=== PATIENT | female | born 1995 | race Caucasian/White ===

== ENCOUNTER 2020-11-03 11:35 | Inpatient (IN) | payer MEDICAID, SELFPAY ==
[2020-11-03] VITALS (23 sets, daily range): BP systolic 95–133; BP diastolic 56–83; PULSE 68–99; RESP 16–18; TEMP 36.5; BMI 25.6
[2020-11-03] MEDS: oxytocin 30 UNIT/500 ML BAG 600 UNIT IV (11:21)
[2020-11-03] MEDS: lactated ringers 1,000 ML 999 ML IV (11:30)
--- NOTE | 2020-11-03 11:58 | P.PCNOB_ITS ---
Delivery Note: Date of delivery: November 03, 2020 this 24-year-old 3 now para 3 female at 39-1/2 weeks gestation had spontaneous onset of labor around 9:00 this morning. They arrived to [facility] OB department at a little before 11 and was found to be completely dilated. This physician was called and we arrived and got things prepared and she was able to push and delivered by spontaneous vaginal delivery a healthy, viable female infant at 1118. Upon delivery of the head in occiput posterior position the mouth and nose were suctioned at the perineum. She did have artificial from her membranes immediately prior to delivery of the infant and the fluid was clear. The right shoulder delivered anteriorly followed by the left shoulder posteriorly. The was then suctioned more and laid on mother's abdomen. She was initially stunned but cried lustily within a minute and had Apgars of 8 and 9 at 1 and 5 minutes respectively. The umbilical cord was cut by the 's father after clamping at approximately 1 minute of age. The umbilical cord had 3 blood vessels. There was no nuchal cord. The patient had a small midline second- degree episiotomy which extended but continue to be a second-degree. This was repaired using layered surgical closure and local anesthesia using lidocaine 2% without epinephrine. After closing the perineum and vaginal area, the vaginal vault was explored and a moderate amount of clots were cleared with the fundus remaining very firm. Bleeding slowed immensely. She did have Pitocin going intravenously. The weighed 8 pounds 6 ounces with an estimated blood loss of approximately 213 mL. There were no complications. Pre-Delivery Course: This patient is followed by this physician throughout her course without any major concerns or problems. Her blood type was A+ with antibody screen negative. Hepatitis B, hepatitis C, RPR and HIV were negative. Rubella was immune and group B strep was negative. Delivery: Spontaneous vaginal delivery. Post-Delivery Status: Patient will be followed for routine postdelivery care. A&P Assessment and plan (1) Normal spontaneous vaginal delivery: Patient did well with the delivery and will be followed for routine postdelivery care. Status: Acute Coding Level of Care Code Acute Sterile Supply Technician for Chg Fwd Diagnoses Normal spontaneous vaginal delivery O80
[2020-11-03] MEDS: HYDROcodone-acetaminophen 5-325 mg Tablet PO (12:28)
[2020-11-03] MEDS: benzocaine-menthol 78 gm Canister 1 SPRAY TOPICAL (12:28)
[2020-11-03] MEDS: ibuprofen 800 mg tablet PO ×2 (15:21→20:14)
--- NOTE | 2020-11-03 19:07 | PC.NURSE ---
Mom was late to care. First appt 30 weeks 4 days. Mom states this is because of COVID
[2020-11-04] VITALS (7 sets, daily range): BP systolic 100–117; BP diastolic 55–74; PULSE 72–152; RESP 14–15; TEMP 36.8–37.2
[2020-11-04 03:30] LABS: Hematocrit 22.2 % (37.0-47.0); Mean Corpuscular HGB Conc 29.3 g/dL (30.0-36.0); Mean Corpuscular Hemoglobin 20.8 pg (28.0-34.0); Mean Corpuscular Volume 71.2 fL (81-99); Mean Platelet Volume 11.7 fL (7.4-10.4); Platelet Count 194 10^3/cmm (130-400); Red Blood Count 3.12 10^6/uL (4.1-5.3); Red Cell Distribution Width 18.7 % (12.1-15.1); White Blood Count 14.8 10^3/uL (4.0-10.0)
[2020-11-04 03:39] LABS: Hemoglobin 6.5 g/dL (11.5-15.3)
--- NOTE | 2020-11-04 07:33 | PM.OBGYDC ---
Discharge Providers ENGINEER BYPRODUCT Date of Admission: 11/03/20 11:35 Date of Discharge: 11/04/20 Attending Provider at Admission: Tyson Romero MD Attending Provider at Discharge: Tyson Romero MD Primary Care Provider: Tyson Romero MD Diagnoses at Discharge Discharge Diagnosis (1) Normal spontaneous vaginal delivery: Status: Acute (2) Anemia affecting third : Status: Acute Reason for Visit Reason for Visit: Contractions Hospital Course Hospital Course This patient began having contractions around 9 AM yesterday. [facility] a little before 11:00 AM. Upon arrival, she was found to be completely dilated and julissa. This physician was called and we are able to deliver by spontaneous vaginal delivery healthy, viable female with Apgars of 8 and 9 at 1 and 5 minutes respectively. There was a midline second-degree episiotomy with a layered surgical closure. As she came quickly and delivered quickly were unable to get any blood work done prior to delivery. Therefore, the hemogram was just done this morning. This morning the hemoglobin was 6.5 with a hematocrit of 22. I suspect this is more of a longstanding anemia with acute worsening. She is completely asymptomatic at this time. She has had just mild lochia and no heavy bleeding or clots noted. There are no other problems or concerns and she will be ready for discharge this afternoon after 's metabolic screen. Information Peripartum Data: Infant Delivery Method: Vaginal Physical Exam Const: COMMON NORMALS: no acute distress, average body habitus, healthy appearing, alert and well nourished GENERAL APPEARANCE: cooperative, comfortable, well kempt and well hydrated ORIENTATION/CONSCIOUSNESS: Yes awake, Yes oriented to person, Yes oriented to place and Yes oriented to time HENMT: COMMON NORMALS: moist oral mucous membranes Resp: COMMON NORMALS: normal respiratory effort, No retractions, No use of accessory muscles and clear to auscultation bilaterally AUSCULTATION: clear to auscultation bilaterally Cardio: COMMON NORMALS: regular rate, regular rhythm and No murmurs present (Cardio) RATE: regular rate RHYTHM: regular rhythm GI: COMMON NORMALS: Normal to inspection, nondistended, normoactive bowel sounds present, Soft to palpation and non-tender (Fundus is firm well below the umbilicus.) INSPECTION: Yes normal to inspection PALPATION: Yes Soft to palpation : COMMON NORMALS: Yes no CVA tenderness BLADDER/KIDNEY EXAM: Yes no CVA tenderness Back/Pelvis: COMMON NORMALS: no CVA tenderness Extremity: COMMON NORMALS: normal to inspection, full ROM, capillary refill normal, no calf tenderness and no pedal edema Neuro: COMMON NORMALS: moves all extremities, no focal motor deficits and no sensory deficits noted SENSORIUM/ORIENTATION: Yes alert, Yes oriented to person, Yes oriented to place and Yes oriented to time Psych: COMMON NORMALS: mental status grossly normal, cooperative and normal affect APPEARANCE: Yes well kempt Skin: COMMON NORMALS: no rashes or lesions noted GENERAL SKIN EXAM: no rashes or lesions noted Discharge Data Data Completed and Pending: Labs from last 24 hours 11/04/20 02:40 WBC 14.8 H RBC 3.12 L Hgb 6.5 L* Hct 22.2 L MCV 71.2 L MCH 20.8 L MCHC 29.3 L RDW 18.7 H Plt Count 194 MPV 11.7 H Vitals: Last Vital Signs Temp 98.3 F 11/04/20 05:42 Pulse 86 11/04/20 05:48 Resp 46 H 11/04/20 05:42 BP 103/55 11/04/20 05:48 Discharge Plan Discharge Patient Disposition: Home Condition: Stable Prescriptions: New ibuprofen 800 mg Tablet 800 mg PO TID Qty: 90 RF: 2 ferrous sulfate 325 mg (65 mg iron) tablet,delayed release (DR/EC) 325 mg PO BID Qty: 60 RF: 5 docusate sodium [DOK] 100 mg Capsule 100 mg PO BID Qty: 60 RF: 5 Discharge Orders: Discharge Order (Routine); Ordered 11/04/20 Ordered By: Tyson Romero Referrals: Tyson Romero MD [Primary Care Provider] - 6 Weeks Discharge Diet: Usual diet Discharge Activity: Resume usual activity Patient Instructions: Opioid Safety Discharge Attestations ENGINEER BYPRODUCT Time Spent in Discharge Care*: less than 30 min Specific Discharge Activities: Specific discharge activities: educating patient, documenting/other paperwork and evaluating patient/reviewing data Coding Level of Care Code Acute Food Preparation Kitchen Aide for Chg Fwd Diagnoses Normal spontaneous vaginal delivery O80 Anemia affecting third O99.019
[2020-11-04] MEDS: prenatal vitamin Capsule 1 CAP PO (08:04)
[2020-11-04] MEDS: ibuprofen 800 mg tablet PO (08:04)
[2020-11-04] MEDS: docusate sodium 100 mg Capsule PO (08:05)
== END 2020-11-04 14:30 | disposition home or self-care (01) | DRG 807 ==
LOC: OPOB 11:35 → OBGYN 11:35
PROVIDERS: Admitting Provider Family Medicine; PCP Family Medicine; Visit Provider Family Medicine
DX: O99.02 Anemia complicating childbirth (principal); Z37.0 Single live birth; D64.9 Anemia, unspecified; O70.1 Second degree perineal laceration during delivery; Z3A.39 39 weeks gestation of pregnancy
CPT/HCPCS: 36415; 59025; 59409; 85027; 99211

== ENCOUNTER 2024-04-04 14:23 | Emergency (ER) | payer SELFPAY ==
[2024-04-04 14:24] VITALS: BP 135/95; PULSE 97; RESP 18; TEMP 36.8; O2SAT 100; BMI 23.3
--- NOTE | 2024-04-04 14:26 | ECG_ITS ---
[facility] Test Date: 2024-04-04 Pat Name: Shazia Contreras Department: Room: Gender: Female Media Marketing Specialist: : 1995 Requested By: Shazia Winston Order Number: [id number] Faye MD: DEONTE BARNETT Measurements Intervals [place] Rate: 94 P: 86 [place]: 155 QRS: 79 QRSD: 95 T: 60 QT: 343 QTc: 431 Interpretive Statements SINUS RHYTHM INCOMPLETE RIGHT BUNDLE BRANCH BLOCK [90+ ms QRS DURATION, TERMINAL R IN V1/V2, 40+ ms S IN I/aVL/V4/V5/V6] No previous ECG available for comparison Electronically Signed On 04-05-2024 20:13:07 CDT by DEONTE BARNETT [email or web address] medical [email or web address] Mammoth Gamesselect medical specialty hospital - [facility], inc.Chatty/store/NU/[id number] f
--- NOTE | 2024-04-04 14:31 | CTR_ITS ---
PROCEDURE INFORMATION: Exam: CT Head Without Contrast Exam date and time: 04/04/2024 3:05 PM Age: 28 years old Clinical indication: Altered mental status/memory loss; Additional info: Encephalopathy, altered mental status TECHNIQUE: Imaging protocol: Computed tomography of the head without contrast. Axial, coronal and sagittal reformatted images were created and reviewed. Radiation optimization: All CT scans at this facility use at least one of these dose optimization techniques: automated exposure control; mA and/or kV adjustment per patient size (includes targeted exams where dose is matched to clinical indication); or iterative reconstruction. COMPARISON: No relevant prior studies available. RADIATION DOSE METRICS: Total DLP (mGy-cm): 980 FINDINGS: Brain: No CT evidence of acute intracranial hemorrhage or acute territorial infarction. No significant mass effect or midline shift. Basal cisterns patent. Cerebral ventricles: Normal in size and configuration. Paranasal sinuses: Unremarkable. No fluid levels. Mastoid air cells: Grossly unremarkable. Bones: Unremarkable. No acute fracture. Soft tissues: Grossly unremarkable. CT/CT head wo con* [id number] IMPRESSION: No CT evidence of acute intracranial pathology.
[2024-04-04 14:41] LABS: Basophils # 0.1 10^3/uL (0.0-0.1); Eosinophils # 0.1 10^3/uL (0.0-0.8); Eosinophils % 1.4 %; Hematocrit 28.8 % (36-47); Lymphocytes # 1.1 10^3/uL (0.8-4.8); Lymphocytes % 21.7 %; Mean Corpuscular HGB Conc 27.1 g/dL (30-55); Mean Corpuscular Hemoglobin 16.6 pg (27-33); Mean Corpuscular Volume 61.1 fl (85-98); Mean Platelet Volume 10.6 fL (7.4-10.4); Monocytes # 0.5 10^3/uL (0.2-0.9); Monocytes % 9.8 %; Neutrophils # 3.38 10^3/uL (1.8-7.7); Neutrophils % 65.9 %; Nucleated Red Blood Cells % 0 %; Platelet Count 322 10^3/cmm (157-399); Red Blood Count 4.71 10^6/uL (3.85-5.65); Red Cell Distribution Width 19.7 % (12.1-15.1); White Blood Count 5.12 10^3/uL (3.29-11.43)
[2024-04-04 14:44] LABS: Slide Review Slide Review Perform
[2024-04-04 14:53] LABS: HCG, Serum Qual Negative (Negative)
[2024-04-04 14:59] LABS: Alanine Aminotransferase 12 U/L (0-33); Albumin Level 4.5 g/dL (3.5-5.2); Alkaline Phosphatase 48 U/L (35-105); Blood Urea Nitrogen 10 mg/dL (6-20); Calcium 8.6 mg/dL (8.5-10.5); Carbon Dioxide 23 mmol/L (22-29); Chloride 104 mmol/L (98-107); Globulin 3.2 g/dL (1.3-4.6); Glomerular Filtration Rate 84.8 mL/min (90-130); Glucose 86 mg/dL (65-115); Osmolality Calculated 282 mOsm/kg (285-295); Sodium 137 mmol/L (136-145); Total Bilirubin 0.4 mg/dL (0.15-1.2); Total Protein 7.7 g/dL (6.6-8.7)
[2024-04-04 15:00] LABS: Anion Gap 14.9 (5-19); Aspartate Amino Transferase 27 U/L (0-32); Lactic Sepsis W/Reflex 1.2 mmol/L (0.5-2.2); Potassium 4.9 mmol/L (3.5-5.1)
[2024-04-04 15:01] VITALS: BP 111/87; PULSE 84; O2SAT 99
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
[2024-04-04 15:41] LABS: ABG PCO2 33.7 mmHg (35-45); ABG PH Result 7.43 (7.35-7.45); Arterial Blood Gas Hematocrit 22.6 % (37-47); Base Excess ABG -1.9 mmol/L (-2.0-2.0); Blood Gas Operator Identificat glc; Blood Gas Sample Site Brachial, right; Blood Gas Sample Type Arterial; Carboxyhemoglobin 1.6 %THgb (0.4-20.1); HCO3 ABG 22.2 mmol/L (22-26); HGB O2 Sat 97.6 % (95-100); Ionized Calcium Level - ABG 1.2 mmol/L (1.1-1.4); Methemoglobin 0.4 % (0.4-1.5); Oxygen Saturation ABG > 99.1; PO2 FiO2 Ratio Arterial Blood 528; Potassium Level - ABG 3.6 mmol/L (3.5-5.0); Total Hemoglobin 7.4 g/dL (12-16)
[2024-04-04 15:45] LABS: Oxygen Device RA
[2024-04-04 15:57] LABS: Bilirubin Urine Negative (Negative); Blood Urine Negative (Negative); Glucose Urine UA Negative (Normal); Ketones Urine Negative (Negative); Leukocyte Esterase Urine Negative (Negative); Nitrate Urine Negative (Negative); Protein Urine Negative (Negative); Specific Gravity, Urine 1.005 (1.005-1.030); Urine Appearance Clear (CLEAR); Urine Color Yellow (Yellow); Urobilinogen Urine 0.2 mg/dL (Negative); pH Urine 6.5 (5-7)
[2024-04-04 16:00] LABS: Bacteria Urine None Seen /hpf; Hyaline Casts Urine 0-4 /lpf; RBC Urine 0-2 /hpf (0-2); Squamous Epithelial Cell Urine 0-5 /hpf (0-5); WBC Urine 0-5 /hpf (0-5)
[2024-04-04 16:01] LABS: Amphetamines Screen Urine Negative (Negative); Barbiturates Screen Urine Negative (Negative); Benzodiazepines Screen Urine Negative (Negative); Cocaine Screen Urine Negative (Negative); Opiate Screen Urine Negative (Negative); PCP Screen Urine Negative (Negative); THC Screen Urine Negative (Negative)
[2024-04-04 16:11] VITALS: BP 105/67; PULSE 82; O2SAT 100
[2024-04-04 16:34] VITALS: BP 107/64; PULSE 88; O2SAT 96
== END 2024-04-04 16:36 | disposition home or self-care (01) ==
PROVIDERS: Emergency Provider Emergency Medicine; PCP Family Medicine
DX: G40.89 Other seizures (principal); D64.9 Anemia, unspecified; F95.2 Tourette's disorder
CPT/HCPCS: 36600; 70450; 80051; 80053; 80306; 81001; 82330; 82805; 83605; 84703; 85025; 93005; 99284

== ENCOUNTER → 2024-04-10 16:50 | Outpatient (BNVA) | payer SELFPAY | PROVIDERS: PCP Family Medicine; Visit Provider Psychiatry & Neurology Neurology | DX: D64.9 Anemia, unspecified (principal); F95.2 Tourette's disorder | CPT/HCPCS: 36415; 82306; 82607; 82746; 83090; 83735; 83921; 84439; 84443; 84481 ==

== ENCOUNTER 2024-05-08 14:04 | Outpatient (CLI) | payer MEDICAID, SELFPAY ==
--- NOTE | 2024-05-08 13:45 | MR_ITS ---
WS: [id number] MRI HEAD WITH CONTRAST TECHNIQUE: Sagittal T1, T2 axial, T2 axial FLAIR, axial susceptibility weighted imaging, axial diffus ion weighted images, and coronal T2 images were obtained. Pre and post-T1 axial and post T1 coronal i mages. ADC and FSPGR images. CLINICAL INFORMATION: F95.2 - Tourette's disorder COMPARISON: None. FINDINGS: No evidence of restricted diffusion to suggest acute ischemia. Ventricular system and basal cisterns are patent. No suspicious intracranial signal abnormalities. Normal maier-white differentiation. Sintia l posterior fossa. Normal vascular flow voids at the skull base. No extra-axial fluid collections. No evidence of mass or mass effect. Paranasal sinuses and mastoid air cells are well aerated. No hemosiderin on the susceptibly weighted images. Normal optic chiasm and pituitary infundibulum. Te mporal lobes and hippocampal formations are normal in appearance. No abnormal gadolinium enhancement. Normal visualized dural venous sinuses. MR/MR head wo/w con [id number] IMPRESSION: 1. No evidence of restricted diffusion to suggest acute ischemia. 2. No suspicious intracranial signal abnormalities. 3. No abnormal gadolinium enhancement. 4. No hemosiderin on the susceptibly weighted images. 5. Temporal lobes and hippocampal formations are normal in appearance. 6. No other acute findings.
[2024-05-08] MEDS: gadobenate dimeglumine 20 mL vial 13 ML IV (15:00)
== END 2024-05-08 14:05 | disposition home or self-care (01) ==
LOC: RAD 14:06
PROVIDERS: PCP Family Medicine; Visit Provider Psychiatry & Neurology Neurology
DX: F95.2 Tourette's disorder (principal); D64.9 Anemia, unspecified
CPT/HCPCS: 70553

== ENCOUNTER 2024-07-20 13:00 | Outpatient (CLI) | payer MEDICAID, SELFPAY ==
--- NOTE | 2024-07-20 13:14 | US_ITS ---
WS: [id number] ULTRASOUND BREAST RIGHT TECHNIQUE: Ultrasound right breast focused area of concern. CLINICAL INFORMATION: RIGHT BREAST LUMP COMPARISON: None. FINDINGS: Ultrasound RIGHT breast in the area of patient concern, patient directed at the 5:00 6:00 and 7:00 po sitions. Dense underlying parenchymal tissue. 2 tiny elongated cysts in the shallow parenchymal tissu e with a benign appearance. No suspicious lesions. No lesions to target for biopsy. US/US breast RT limited* [id number] IMPRESSION: BI-RADS 2 benign Recommend annual screening mammography age 40
== END 2024-07-20 13:12 | disposition home or self-care (01) ==
PROVIDERS: PCP Family Medicine; Visit Provider Family Medicine
DX: N63.15 Unspecified lump in the right breast, overlapping quadrants (principal)
CPT/HCPCS: 76642

== ENCOUNTER → 2024-09-14 13:43 | Outpatient (BNVA) | payer MEDICAID, SELFPAY | PROVIDERS: PCP Family Medicine; Visit Provider Nurse Practitioner Family | DX: L60.8 Other nail disorders (principal); L60.1 Onycholysis; B35.1 Tinea unguium | CPT/HCPCS: 99204 ==

== ENCOUNTER → 2024-11-28 15:30 | Outpatient (BNVA) | payer MEDICAID, SELFPAY | PROVIDERS: PCP Family Medicine; Visit Provider Nurse Practitioner Family | DX: L60.8 Other nail disorders (principal); L60.1 Onycholysis; B35.1 Tinea unguium | CPT/HCPCS: 99214 ==

== ENCOUNTER → 2025-05-15 15:02 | Outpatient (BNVA) | payer MEDICAID, SELFPAY | PROVIDERS: PCP Family Medicine; Visit Provider Nurse Practitioner Family | DX: L21.8 Other seborrheic dermatitis (principal); L60.8 Other nail disorders; L60.1 Onycholysis; B35.1 Tinea unguium; L03.012 Cellulitis of left finger | CPT/HCPCS: 99214 ==